=== PATIENT | male | born 2005 | race African-American/Black ===

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

== ENCOUNTER 2023-07-30 08:43 | Emergency (ER) | payer OTHER, SELFPAY ==
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
--- NOTE | ~2023-07-30 | XR_ITS ---
XR shoulder LT min 2V 07/30/2023 13:57 INDICATION: Left shoulder pain PROCEDURE: 5 views left shoulder COMPARISON: No prior studies for comparison. FINDINGS: Fracture, dislocation or subluxation is not identified. The soft tissues appear within norm al limits. No foreign bodies are identified. IMPRESSION: 1: NO ACUTE BONE OR JOINT ABNORMALITY IDENTIFIED. Reviewed, dictated and finalized at location B.
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
[2023-07-30 08:47] VITALS: BP 120/68; PULSE 74; RESP 16; TEMP 37; O2SAT 98
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
[2023-07-30] MEDS: ACETAMINOPHEN 500 MG TABLET 1000 MG PO (14:18)
[2023-07-30 14:40] VITALS: BP 122/56; PULSE 70; RESP 16; O2SAT 100
== END 2023-07-30 14:50 | disposition home or self-care (01) ==
PROVIDERS: Emergency Provider Student in an Organized Health Care Education/Training Program; Referring Provider Family Medicine
DX: S40.012A Contusion of left shoulder, initial encounter (principal); S70.02XA Contusion of left hip, initial encounter; V49.40XA Driver injured in collision with unspecified motor vehicles in traffic accident, initial encounter
CPT/HCPCS: 71111; 73030; 73502; 99284; A9270